=== PATIENT | female | born 1985 | race Caucasian/White ===

== ENCOUNTER 2017-12-02 12:36 | Emergency (ER) | payer MEDICAID, OTHER ==
[~2017-12-02] VITALS: Ht 167.6 cm; Wt 52.2 kg
[2017-12-02 13:19] LABS: BILIRUBIN,URINE NEGATIVE (NEGATIVE); CLARITY,URINE SLIGHTLY CLOUDY; COLOR,URINE YELLOW; GLUCOSE, URINE (UA) NEGATIVE (NEGATIVE); KETONES,URINE NEGATIVE (NEGATIVE); LEUKOCYTE ESTERASE ,URINE 1+ (NEGATIVE); NITRITE,URINE NEGATIVE (NEGATIVE); PH,URINE 6 (5-9); PROTEIN,URINE NEGATIVE (NEGATIVE); UROBILINOGEN,URINE NORMAL (NORMAL)
[2017-12-02] MEDS ORDERED: NF-METHYLP PO (13:23)
[2017-12-02] MEDS ORDERED: AZIT250T12 PO (13:23)
--- NOTE | 2017-12-02 13:23 | ED Cough/URI ---
General Stated Complaint: BACK PAIN Source: patient Exam Limitations: no limitations History of Present Illness Date Seen by Provider: Dec 02, 2017 Time Seen by Provider: 13:20 Initial Comments To ER with reports of productive cough for one week. This began initially as a nonproductive cough and has only become productive in the past 2-3 days. She had fevers initially but none for the past 2-3 days. She also has some right- sided thoracic back pain and right flank pain. The symptoms began about 2-3 days ago. No nausea. She does have rhinorrhea as well. Timing/Duration: constant, getting worse Severity/Quality: moderate Associated Symptoms: cough, fever/chills Allergies and Home Medications Allergies Coded Allergies: meloxicam (Verified Allergy, Unknown, 12/02/17) phenazopyridine (Verified Allergy, Unknown, 12/02/17) Home Medications Azithromycin 250 Mg Tablet, 250 MG PO UD TAKE 2 TABLETS ON DAY ONE THEN TAKE 1 TABLET DAILY FOR FOUR MORE DAYS Prescribed by: MARIA ELENA SNOW on 12/02/17 1323 Methylprednisolone 4 Mg Tab, 4 MG PO UD as directed per dose pack Prescribed by: MARIA ELENA SNOW on 12/02/17 1323 Patient Home Medication List Home Medication List Reviewed: Yes Review of Systems Review of Systems Constitutional: see HPI, fever (L her last name is my) EENTM: see HPI, nose congestion Respiratory: see HPI, cough, short of breath Cardiovascular: no symptoms reported Genitourinary: no symptoms reported Musculoskeletal: no symptoms reported Skin: no symptoms reported Psychiatric/Neurological: No Symptoms Reported Hematologic/Lymphatic: No Symptoms Reported Immunological/Allergic: no symptoms reported Past Saclevs-Zrqoug-Hbyyyl Hx Patient Social History Recent Foreign Travel: No Contact w/Someone Who Travel: No Physical Exam Vital Signs - First Documented 12/02/17 13:57 Temp 98.2 Pulse 78 Resp 20 B/P (MAP) 156/82 Pulse Ox 100 O2 Delivery Room Air Capillary Refill : Height: '" Weight: lbs. oz. kg; BMI Method: General Appearance: WD/WN, no apparent distress Eyes: Bilateral Eye Normal Inspection, Bilateral Eye PERRL, Bilateral Eye EOMI HEENT: PERRL/EOMI, normal ENT inspection, TMs normal Neck: non-tender, full range of motion Respiratory: normal breath sounds, no respiratory distress, no accessory muscle use Cardiovascular: regular rate, rhythm, no murmur Gastrointestinal: normal bowel sounds, non tender, soft Extremities: normal range of motion, non-tender (that would be nose is) Neurologic/Psychiatric: alert, normal mood/affect, oriented x 3 Skin: normal color, warm/dry Progress/Results/Core Measures Suspected Sepsis SIRS Temperature: Pulse: Respiratory Rate: Blood Pressure / Mean: Results/Orders Lab Results Laboratory Tests Test 12/02/17 13:03 Range/Units Urine Color YELLOW Urine Clarity SLIGHTLY CLOUDY Urine pH 6 5-9 Urine Specific [place] 1.015 L 1.016-1.022 Urine Protein NEGATIVE NEGATIVE Urine Glucose (UA) NEGATIVE NEGATIVE Urine Ketones NEGATIVE NEGATIVE Urine Nitrite NEGATIVE NEGATIVE Urine Bilirubin NEGATIVE NEGATIVE Urine Urobilinogen NORMAL NORMAL MG/DL Urine Leukocyte Esterase 1+ H NEGATIVE Urine RBC (Auto) NEGATIVE NEGATIVE Urine RBC NONE /HPF Urine WBC 2-5 /HPF Urine Squamous Epithelial Cells 0-5 /HPF Urine Crystals NONE /LPF Urine Cystine Crystals RARE H /LPF Urine Bacteria NEGATIVE /HPF Urine Casts NONE /LPF Urine Mucus NEGATIVE /LPF Urine Culture Indicated NO Urine Opiates Screen NEGATIVE NEGATIVE Urine Oxycodone Screen POSITIVE H NEGATIVE Urine Methadone Screen NEGATIVE NEGATIVE Urine Propoxyphene Screen NEGATIVE NEGATIVE Urine Barbiturates Screen NEGATIVE NEGATIVE Ur Tricyclic Antidepressants Screen NEGATIVE NEGATIVE Urine Phencyclidine Screen NEGATIVE NEGATIVE Urine Amphetamines Screen NEGATIVE NEGATIVE Urine Methamphetamines Screen NEGATIVE NEGATIVE Urine Benzodiazepines Screen NEGATIVE NEGATIVE Urine Cocaine Screen NEGATIVE NEGATIVE Urine Cannabinoids Screen NEGATIVE NEGATIVE My Orders Orders - MARIA ELENA NSOW APRN Ua Culture If Indicated (12/02/17 13:13) Drug Screen Stat (Urine) (12/02/17 13:13) Urine Bedside (12/02/17 13:13) Chest Pa/Lat (2 View) (12/02/17 13:13) Vital Signs/I&O 12/02/17 13:57 Temp 98.2 Pulse 78 Resp 20 B/P (MAP) 156/82 Pulse Ox 100 O2 Delivery Room Air Capillary Refill : Diagnostic Imaging Diagonstic Imaging: Xray Comments NAME: LETITIA REIS [facility] REC#: [id number] PT STATUS: REG ER : 1985 PHYSICIAN: MARIA ELENA SNOW APRN ADMIT DATE: 12/02/17/ER Signed Date of Exam:12/02/17 CHEST PA/LAT (2 VIEW) CHEST PA/LAT (2 VIEW) Indication: Cough Comparison: None available. Findings: No focal pneumonic consolidation, pleural effusion or pneumothorax. Normal heart size and pulmonary vasculature. Impression: No acute cardiopulmonary process. Dictated by: Dictated on workstation # [id number] Dict: 12/02/17 1326 Trans: 12/02/17 1326 [facility] [id number] Interpreted by: NELLY HUGGINS MD Electronically signed by: NELLY HUGGINS MD 12/02/17 1326 Departure Impression Primary Impression: Bronchitis Disposition: HOME, SELF-CARE Condition: Stable Departure-Patient Inst. Decision time for Depature: 13:22 Referrals: NO,LOCAL PHYSICIAN (PCP/Family) Primary Care Physician Patient Instructions: Acute Bronchitis in Adults Add. Discharge Instructions: 1. Medication as directed. You may also use [id number] decongestant cough medication as needed. Scripts Methylprednisolone (Medrol) 4 Mg Tab 4 MG PO UD for 6 Days, #21 TAB as directed per dose pack Prov: MARIA ELENA SNOW APRN 12/02/17 Azithromycin (Azithromycin) 250 Mg Tablet 250 MG PO UD, #6 TAB TAKE 2 TABLETS ON DAY ONE THEN TAKE 1 TABLET DAILY FOR FOUR MORE DAYS Prov: MARIA ELENA SNOW APRN 12/02/17 MARIA ELENA SNOW APRN Dec 02, 2017 13:23
--- NOTE | 2017-12-02 13:29 | Diagnostic Imaging Report ---
CHEST PA/LAT (2 VIEW) Indication: Cough Comparison: None available. Findings: No focal pneumonic consolidation, pleural effusion or pneumothorax. Normal heart size and pulmonary vasculature. Impression: No acute cardiopulmonary process. Dictated by: Dictated on workstation # [id number]
[2017-12-02 13:40] LABS: AMPHETAMINE SCREEN, URINE NEGATIVE (NEGATIVE); BARBITURATE SCREEN URINE NEGATIVE (NEGATIVE); BENZODIAZEPINES SCREEN URINE NEGATIVE (NEGATIVE); CANNABINOID SCREEN, URINE NEGATIVE (NEGATIVE); COCAINE SCREEN URINE NEGATIVE (NEGATIVE); METHADONE STAT NEGATIVE (NEGATIVE); METHAMPHETAMINE SCREEN URINE S NEGATIVE (NEGATIVE); OPIATE SCREEN URINE NEGATIVE (NEGATIVE); OXYCODONE STAT POSITIVE (NEGATIVE); PROPOXYPHENE STAT NEGATIVE (NEGATIVE); TRICYCLIC ANTIDEPRESSANTS SCRE NEGATIVE (NEGATIVE)
[2017-12-02 13:49] LABS: BACTERIA,URINE NEGATIVE /HPF; CYSTINE CRYSTALS,URINE RARE /LPF; SQUAMOUS EPITHELIAL CELL,UR 0-5 /HPF
[2017-12-02 13:57] VITALS: BP 156/82
== END 2017-12-02 13:57 | disposition home or self-care (01) ==
LOC: ER 12:39
DX: J40 Bronchitis, not specified as acute or chronic (principal); Z88.8 Allergy status to other drugs, medicaments and biological substances; Z79.52 Long term (current) use of systemic steroids
CPT/HCPCS: 71046; 80306; 81000; 84703; 99282